=== PATIENT | male | born 1995 | race Caucasian/White ===

== ENCOUNTER 2021-06-27 11:40 | Inpatient (IN) | payer MEDICAID ==
[~2021-06-27] VITALS: Ht 195.6 cm; Wt 651.4 kg
[2021-06-27] MEDS ORDERED: HYDROCODONE/ACETAMINOPHEN 5/325MG TABLET PO STA ×2 (11:57→15:23)
[2021-06-27] MEDS ORDERED: KETOROLAC 60MG/2ML VIAL IM STA (11:57)
[2021-06-27] MEDS ORDERED: MORPHINE SULFATE 4 MG/ML CPJ (NOT FOR IM USE) IV STA (15:08)
[2021-06-27] MEDS ORDERED: DOCUSATE SODIUM 100MG CAPSULE PO PRN (15:45)
[2021-06-27] MEDS ORDERED: ACETAMINOPHEN 325MG TABLET PO PRN ×2 (15:45)
[2021-06-27] MEDS ORDERED: MAGNESIUM/ALUMINUM HYDROXIDE/SIMETHICONE 30ML UDC PO PRN (15:45)
[2021-06-27] MEDS ORDERED: CLONIDINE 0.1MG TABLET PO PRN (15:45)
[2021-06-27] MEDS ORDERED: KETOROLAC 15MG/ML VIAL IV PRN (15:45)
[2021-06-27] MEDS ORDERED: TRAMADOL 50MG TABLET PO PRN (15:45)
[2021-06-27] MEDS ORDERED: ONDANSETRON HCL 4MG/2ML INJ IV PRN (15:45)
[2021-06-27] MEDS ORDERED: GUAIFENESIN 200MG/10ML SUGAR FREE UDC PO PRN (15:45)
[2021-06-27] MEDS ORDERED: IPRATROPIUM/ALBUTEROL 0.5-3(2.5)MG/3ML NEB NEB PRN (15:45)
[2021-06-27] MEDS ORDERED: NITROGLYCERIN 0.4MG TABLET SL SL PRN (15:45)
[2021-06-27 18:06] LABS: BASOPHILS % 0.1 % (0.0-2.0); HEMATOCRIT. 41.4 % (42.0-52.0); HEMOGLOBIN. 13.4 g/dL (14.0-18.0); LYMPHOCYTES % 9.9 % (20.0-50.0); MEAN CORPUSCULAR HEMOGLOBIN 26.2 pg (28.0-32.0); MEAN CORPUSCULAR VOLUME 80.8 fL (80.0-94.0); MEAN PLATELET VOLUME 8.7 fl (7.4-10.4); MONOCYTES % 5.5 % (2.0-8.0); NEUTROPHILS % 84.5 % (40.0-76.0); PLATELET 211 x1000/uL (130-400); RED BLOOD CELL COUNT 5.12 mill/uL (4.7-6.1); RED CELL DISTRIBUTION WIDTH 13.9 % (11.6-14.6)
[2021-06-27] MEDS ORDERED: NALOXONE HCL 0.4MG/ML VIAL IV PRN (18:15)
[2021-06-27 18:18] LABS: CHLORIDE 112 mEq/L (98-107)
[2021-06-27 18:24] LABS: ETHANOL BLOOD < 10 mg/dL
[2021-06-27] MEDS ORDERED: ZOLPIDEM TARTRATE 5MG TABLET PO PRN (21:00)
[2021-06-27] MEDS: FAMOTIDINE 20MG TABLET PO SCH (22:00)
[2021-06-27] MEDS ORDERED: POTASSIUM CHLORIDE 20MEQ/PACKET PO NR (22:00)
[2021-06-28 04:05] LABS: BASOPHILS % 0.2 % (0.0-2.0); EOSINOPHILS % 0.2 % (0.0-5.0); HEMATOCRIT. 40.1 % (42.0-52.0); LYMPHOCYTES % 21.2 % (20.0-50.0); MEAN CORPUSCULAR HEMOGLOBIN 26.2 pg (28.0-32.0); MEAN CORPUSCULAR VOLUME 80.8 fL (80.0-94.0); MEAN PLATELET VOLUME 8.4 fl (7.4-10.4); MONOCYTES % 9.1 % (2.0-8.0); NEUTROPHILS % 69.3 % (40.0-76.0); PLATELET 199 x1000/uL (130-400); RED BLOOD CELL COUNT 4.96 mill/uL (4.7-6.1)
[2021-06-28 04:22] LABS: CHLORIDE 109 mEq/L (98-107)
[2021-06-28 04:29] LABS: PHOSPHORUS 3.7 mg/dL (2.5-4.9)
[2021-06-28] MEDS: FAMOTIDINE 20MG TABLET PO SCH ×2 (09:00→20:21)
[2021-06-28 09:30] VITALS: BP 122/53
[2021-06-28 09:59] VITALS: BP 122/53
[2021-06-28 12:00] VITALS: BP 106/55
[2021-06-28 16:00] VITALS: BP 129/59
[2021-06-29] MEDS: FAMOTIDINE 20MG TABLET PO SCH (08:25)
[2021-06-29 13:02] VITALS: BP 115/57
[2021-06-29 13:16] VITALS: BP 115/57
== END 2021-06-29 14:05 | disposition home or self-care (01) | DRG 342 ==
LOC: ER 11:55 → MICUSO 14:39 → 6EST 06-28 09:17
PROVIDERS: ADMIT Internal Medicine; ATTEND Internal Medicine
PROC: 2W3QX1Z Immobilization of Right Lower Leg using Splint (ICD-10-PCS; principal; 2021-06-27)
DX: S82.111A Displaced fracture of right tibial spine, initial encounter for closed fracture (principal); D64.9 Anemia, unspecified; S82.431A Displaced oblique fracture of shaft of right fibula, initial encounter for closed fracture; E87.6 Hypokalemia; V00.131A Fall from skateboard, initial encounter; Y93.51 Activity, roller skating (inline) and skateboarding; Z20.822 Contact with and (suspected) exposure to COVID-19; Z79.899 Other long term (current) drug therapy; Y92.89 Other specified places as the place of occurrence of the external cause; Y99.8 Other external cause status
CPT/HCPCS: 36415; 73590; 73600; 80053; 80320; 83735; 84100; 85025; 87426; 93005; 97161; 97165; 99285; J1885; J2270; G0480